=== PATIENT | male | born 1940 ===

== ENCOUNTER 2017-02-11 07:02 | Day surgery (SDC) | payer MEDICARE, MEDICAID ==
[2017-02-08 09:24] VITALS: BMI 31.7
[2017-02-11 08:02] VITALS: RESP 18
[2017-02-11] MEDS ORDERED: cefTRIAXone IV 1 gm in Dextros 50 ML IVPB ONE (08:45)
[2017-02-11] MEDS ORDERED: Midazolam 2 MG/2 ML VIAL ONE (09:08)
[2017-02-11] MEDS ORDERED: Propofol 10 mg/ml Inj (20 ML) ONE (09:08)
[2017-02-11] MEDS ORDERED: Lactated Ringer's 1,000 ML IV ONE ×2 (09:38→12:00)
[2017-02-11] MEDS ORDERED: cefTRIAXone (Rocephin) 1 gm Inj IVPB ONE (09:50)
[2017-02-11] MEDS ORDERED: Lactated Ringer's 500 ML IV ONE (10:25)
[2017-02-11] MEDS ORDERED: HYDROmorphone 0.5 mg/0.5 ml ISec ONE (10:37)
--- NOTE | 2017-02-11 10:52 | OP ---
PROCEDURE DATE: 02/11/2017 PREOPERATIVE DIAGNOSIS: Prostate hypertrophy. POSTOPERATIVE DIAGNOSIS: Prostate hypertrophy. PROCEDURE PERFORMED: GreenLight laser of the prostate. DESCRIPTION OF PROCEDURE: The patient was placed on the operating table in dorsal lithotomy position. The area of the groin was draped and prepped in the sterile manner. Using direct vision, I entered into the bladder with a laser scope, identified the adenoma that needed to be resected. I then deployed a laser fiber and demarcated the distal margin of resection and went back to the bladder neck. I able to visualize the ureteral orifices and I began to resect the prostate, first the middle lobe, followed by the left and right lateral lobes. Once the prostate was significantly open, I stopped the inflow of water, looked for any bleeding. There was very minimal bleeding noted. Able to laser some more the redundant tissue that came into the field of vision. Once this was done, we turned the water run, evaluated the ureteral orifices once again and the verumontanum was noted to be circumferentially intact. At this time, the laser scope was removed and a #22 three-way Maradiaga catheter was inserted. CBI was begun prior to the patient leaving the operating room. The urine outflow was clear at time of discharge from the operating room. Jono Quintero MD
[2017-02-11] MEDS ORDERED: Lactated Ringer's 1,000 ML IV SCH (11:00)
[2017-02-11 12:25] VITALS: TEMP 97; O2SAT 97
[2017-02-11 13:54] VITALS: BP 122/76; PULSE 47
== END 2017-02-11 14:00 | disposition home or self-care (01) ==
LOC: H.OPSURG 07:02
PROVIDERS: ATTEND Urology
DX: N40.0 Benign prostatic hyperplasia without lower urinary tract symptoms (principal); I10 Essential (primary) hypertension
CPT/HCPCS: 52648; J0696; J1170; J2001; J2250; J2704; J3010; J7120